=== PATIENT | female | born 1970 | race Caucasian/White ===

== ENCOUNTER → 2016-11-11 | Outpatient (CLI) | payer OTHER ==
--- NOTE | ~2016-11-11 | MY11 ---
[facility] A Service of [facility] RADIOLOGY TEXT RESULTS PATIENT: JESUSITA ALEXANDER LOCATION: [facility] : 72 UNIT #: [id number] AGE: [address]: Jonathon Martinez MD SEX: F ORDER DR: [id number] [address] [address] [id number] O MR#: [id number] Acc #: [id number] NAME: JESUSITA ALEXANDER : 1970 SEX: F STUDY DATE/TIME: 11/11/2016 13:34 UNIT: [facility] ROOM: STUDY DESCRIPTION: MY Mammogram Screening Dig [facility] Attending Physician: Brendan Martinez M.D. Referring Physician: Brendan Martinez M.D. Ordering Physician: Brendan Martinez M.D. Primary Care Physician: Brendan Martinez M.D. MEDICAL IMAGING REPORT This report is preliminary unless electronic signature is present. EXAM Digital screening mammogram, 11/11/2016, [facility]. HISTORY 46-year-old woman baseline mammogram. Positive family history, 5 maternal cousins. History of ovarian cancer in paternal grandmother. COMPARISON None FINDINGS Digital imaging of each breast was completed utilizing a two-view examination of each breast in craniocaudal and mediolateral-oblique projections. Review and interpretation of digital mammograms include a second review in conjunction with FDA-approved CAD device. There is a normal parenchymal presentation bilaterally consistent with the patient's age. There are no breast masses imaged and no parenchymal asymmetry is visualized. There are no suspicious microcalcifications and I see no focal architectural disturbance. IMPRESSION Negative screening digital mammogram. One-year followup recommended. Patients over the age of 40 are entered into a reminder system with target due date for the next mammogram. A result letter will also be sent to the patient. BIRADS: 1 Negative Dictated by... [facility] A Service [facility] RADIOLOGY TEXT RESULTS PATIENT: JESUSITA ALEXANDER LOCATION: [facility] : 72 UNIT #: [id number] AGE: [address]: Jonathon Martinez MD SEX: F ORDER DR: Reynaldo Olivas M.D. THIS IS AN ELECTRONICALLY VERIFIED REPORT Reynaldo Olivas M.D. at 11/14/2016 8:03 AM EFRAIN/carlyn TD: 11/11/2016 16:56 JOB #: [id number] MEDICAL IMAGING REPORT
== END | disposition home or self-care (01) ==
LOC: SMAM 12:26
DX: Z12.31 Encounter for screening mammogram for malignant neoplasm of breast (principal); Z80.3 Family history of malignant neoplasm of breast
CPT/HCPCS: G0202